=== PATIENT | male | born 1975 ===

== ENCOUNTER 2019-03-13 13:07 | Emergency (ER) | payer MEDICAID ==
[~2019-03-13] VITALS: Ht 170.2 cm; Wt 85.6 kg
--- NOTE | 2019-03-13 13:14 | NUR ---
PT CALLED INTO TRIAGE ROOM. PT WANTS TO CONFIRM WITH REGISTRATION THAT HIS INSURANCE IS ACTIVE PRIOR TO BEING SEEN.
--- NOTE | 2019-03-13 13:21 | NUR ---
NOT IN LOBBY WHEN PT CALLED TO TRIAGE X 1.
== END 2019-03-13 13:48 | disposition left against medical advice (07) ==
LOC: ED 13:42
DX: R22.0 Localized swelling, mass and lump, head (principal); H57.89 Other specified disorders of eye and adnexa; R51 Headache; Z53.21 Procedure and treatment not carried out due to patient leaving prior to being seen by health care provider